=== PATIENT | female | born 1975 | race Asian ===

== ENCOUNTER 2022-05-26 07:47 | Outpatient (CLI) | payer OTHER | END 2022-05-26 21:35 | disposition home or self-care (01) | LOC: RAD 07:47 | PROVIDERS: ATTEND Nurse Practitioner Family | DX: M06.4 Inflammatory polyarthropathy (principal); M25.50 Pain in unspecified joint; M79.641 Pain in right hand; M79.642 Pain in left hand; Z68.32 Body mass index [BMI] 32.0-32.9, adult ==